=== PATIENT | female | born 2005 | race Caucasian/White ===

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

== ENCOUNTER 2025-03-06 15:30 | Outpatient (RCR) | payer BC, SELFPAY ==
--- NOTE | 2025-01-25 16:15 | HP.PTEVAL ---
Patient's Visit Information Visit Information Visit Information: PRAMOD JEROME is a 19 year old F referred to Physical Therapy by Dr. Abi Rikcs MD with a diagnosis of Chronic back pain. Date of Evaluation: 01/25/25 Physical Therapist: Chidi Mae, DPT, OCS, CSCS Visit Plan Frequency: 2x /Week Duration: 4-6 Weeks Plan: 2x/weeek for 3-6 weeks for IE HEP GTB er shoulders and ext shoulders done in perfect upright posture 3x10 daily TREAT WTIH: instruct in core strength and spinal ROM/yoga with pics to HEP then general home based strength to HEP with aggressiveness adn emphasis on proper posture with ex and technique, can do do ext mobs in thoracic region. Ensure HEP progression and pics. Subjective Subjective: Had some back pain and sciatica. Had it for a number of weeks and getting better. 2 weeks ago had a bad episode. R leg and LB pain. Had it overall for months, not sure what makes it worse but is worse on work days. 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 Walks to work one mile. Pain is middle LBP and R leg pain into buttock and infrequently to knee. Sleep is not a problem, 33 degree scoliosis in LB shown on x ray, has seen environmental management specialist 2020, no treatment needed. Basic ADLs all I. Hobbies: drawing , gardening, sewing. No problem but has not gardened lately. Exercise: walking to work.. Pain LBP: Pain Intensity (Out of 10): 0 Pain Intensity Range: 0 and 2 Objective Objective: L rib hump with scoliosis obvious in thoracic spine, Slightly kyphotic posture in thorac and flat lordosis in lumbar spine. Not tender in parapsinals or periscap mm or into gluts, PA mobility is goo and not painful in thoracic or lumbar area. Lumbar/thoracic extension is hypermobile and painfree, flexion is hyprmobile and painfree, SB look good and without pain today. reflexes 2/3 patella and achills B Sensation LE WNL to gross light touch in B LE. strength in core is 3+ abs, 3 xtension, hip strength is 3+ B abd/ext/flexion with contralateral instability in seaetd testing. knee strength 5/5 ext and flexion, ankles 4+/5 B. - slump and - SLR overall hypermobile joints throughout today and no pain or rcreation of symptoms today. Balance/Special Test Scores Oswestry Low Back Score: 2 Goals Goal 1:: I appropriate HEP for core strength, general strength and 4spinal ROM to limit future problems. Goal Time Frame: 4-6 Weeks Goal 2:: Pain in back and R leg 80% better and 1/10 at worst Goal Time Frame: 4-6 Weeks Goal 3:: oswestry score 0 Goal Time Frame: 4-6 Weeks Rehabilitation Potential Physical Therapy Diagnosis: hypermobility and weakness creating spinal instability and resulting pain. Rehabilitation Potential: Fair Anticipated Interventions Patient/Client Instruction: Educate patient on: Condition and Plan of Care For the Purpose of:: To decrease pain, To improve muscle performance and motor function and To increase tolerance to activity/condition/position Therapeutic Exercise to Include: Strength training, Active ROM and Dynamic Lumbar Stabilization For the Purpose of:: To decrease pain, To improve nutrient delivery to tissue, To improve muscle performance and motor function and To increase tolerance to activity/condition/position Manual Therapy Techniques to Include: Mobilization For the Purpose of:: To decrease pain Text: Thank you for the opportunity to evaluate your patient. For Medicare and Medicare HMO plans, please review the plan of care and approve it. It will need to be FAXED BACK to us at [phone] for Medicare purposes. For Medicare only, by signing this I certify the plan of care. Please let me know if there are questions or concerns regarding this plan of care. Physician Signature: Date:
--- NOTE | 2025-03-06 15:56 | HP.PTDCSUM ---
Discharge Summary D/C summary: It has been my pleasure to treat PRAMOD JEROME referred by Dr. Abi Ricks MD, with the diagnosis of Chronic back pain for a total of 9 visit(s). Discharge Date: 03/06/25 Please see the following information for a summary of their discharge status. Subjective Subjective: Dug a lot of dirt yesterday and hurts sore today in shulders and LB, 2/10\. Exercises are going well getting easier. Pain LBP: Pain Intensity (Out of 10): 2 Overall Improvement % Improvement: 70 Objective Objective/Function: Full aROM lumbar without pain today, walking normal and no gait deviations, trasnfrring on off table easily. Ready to be done and just continue via HEP(pt choic.) Goals Goal 1:: I appropriate HEP for core strength, general strength and 4spinal ROM to limit future problems. Goal Progress: ROM and core met Goal 2:: Pain in back and R leg 80% better and 1/10 at worst Goal Progress: Progressing Goal 3:: oswestry score 0 Goal Progress: Progressing Plan Plan: d/c t HEP (pt choice) reviewed neeed for continued ex and need for activity modification to avoid aggravating activities. D/C Information Discharge Comments: Will continue via HEP and leet docgor know if condition worsens. d/c sentence: If there are questions or concerns regarding this patient's physical therapy, please feel free to call me at [phone]. Thank you for the referral of this patient. Sincerely, Chidi Mae, DPT, OCS, CSCS Balance/Gait/Functional tests Balance/Special Test Scores Oswestry Low Back Score: 2 Improvement % Improvement: 70
== END 2025-03-06 19:00 | disposition home or self-care (01) ==
LOC: PT 15:30
PROVIDERS: PCP Pediatrics; Referring Provider Pediatrics; Visit Provider Pediatrics
DX: M54.9 Dorsalgia, unspecified (principal); G89.29 Other chronic pain
CPT/HCPCS: 97110; 97161; 97530